=== PATIENT | female | born 1955 | race Caucasian/White ===

== ENCOUNTER → 2018-05-30 | Outpatient (CLI) | payer MEDICARE ==
[~2018-05-30] MED LIST: MACRODANTIN25 MG PO; VESICARE PO
== END ==
LOC: SUN.DIA 09:42
DX: Z01.89 Encounter for other specified special examinations (principal)

== ENCOUNTER → 2018-10-04 | Outpatient (CLI) | payer MEDICARE | LOC: SUN.DIA 06-07 11:57 | DX: E11.9 Type 2 diabetes mellitus without complications (principal) | CPT/HCPCS: G0109 ==

== ENCOUNTER 2020-12-05 08:35 | Day surgery (SDC) | payer MEDICARE, OTHER ==
[~2020-12-05] VITALS: Ht 162.6 cm; Wt 68.2 kg
[2020-12-05] MEDS ORDERED: GLUCOPHAGE500 MG/TAB PO (08:58)
[2020-12-05 09:38] VITALS: BP 147/76; PULSE 90; TEMP 98.1
[2020-12-05 10:14] VITALS: BP 114/63; PULSE 74
--- NOTE | 2020-12-05 10:14 | NUR ---
Pt returned via cart to [facility] 4. A&O. Pt voiced she is ready to go as soon as she can. VSS-see flowsheet. Denies food or drink at this time. Side rails up on cart and call light in reach. Denies complaints or concerns.
[2020-12-05 10:29] VITALS: BP 124/68; PULSE 75
--- NOTE | 2020-12-05 10:57 | NUR ---
Dr Rodriguez was in to visit post procedure. Pts IV removed and pressure dressing applied. Pt assisted to personal wheelchair and dressed self prior. Pt very self sufficient with dressing and transferring self. DC teaching completed and pt verbalized understanding.
--- NOTE | 2020-12-05 11:09 | NUR ---
Pt in personal wheelchair to private vehicle for dc home with driving.
== END 2020-12-05 11:08 | disposition home or self-care (01) ==
LOC: SDCO 08:35
DX: Z12.11 Encounter for screening for malignant neoplasm of colon (principal); K52.9 Noninfective gastroenteritis and colitis, unspecified; Z93.3 Colostomy status; Z87.440 Personal history of urinary (tract) infections; M19.90 Unspecified osteoarthritis, unspecified site; Z90.49 Acquired absence of other specified parts of digestive tract; Z79.84 Long term (current) use of oral hypoglycemic drugs; E11.9 Type 2 diabetes mellitus without complications
CPT/HCPCS: J2704; J7030